=== PATIENT | female | born 1965 | race Caucasian/White ===

== ENCOUNTER 2016-09-09 16:50 | Emergency (ER) | payer OTHER ==
[2016-09-09 17:04] VITALS: BP 153/77
--- NOTE | 2016-09-09 17:56 | UC ---
Eye Complaint HPI - HPI Summary HPI Summary: 50 yo F pain behind left eye, a "film" over her vision, eye jiggling, for a week , with pain worsening the last few days. There is no focal weakness, no visual field deficit, and no Last Known Well time. Pt is a pt of Dr. Osman ( policyholder information clerk), and pt's daughter has pseudotumor cerebri. Pt also has hx pseudoseizures but these symptoms are nothing like her pseudoseizures. - History of Current Complaint Chief Complaint: UCEye Stated Complaint: LEFT EYE ISSUE Time Seen by Provider: 09/09/16 16:54 Hx Obtained From: Patient, Family/Pit Furnace [employer] - fiance Hx Last Menstrual Period: N/A Onset/Duration: Gradual Onset, Lasting Days, Still Present Timing: Constant Severity Initially: Moderate Severity Currently: Moderate Pain Intensity: 3 Pain Scale Used: 0-10 Numeric Location of Injury: Other - no injury Character: Dull Aggravating Factor(s): Other - eye movement Alleviating Factor(s): Nothing Associated Signs And Symptoms: Positive: Vision Impairment Left - 20/100. Negative: Photophobia, Drainage (Clear), Drainage (Purulent), Vision Impairment Bilateral, Vision Impairment Right, Fever, Swelling - Risk Factors Penetrating Injury Risk Factor: Negative Globe Rupture Risk Factors: Negative Acute Glaucoma Risk Factors: Negative Optic Artery Occlusion Risk Factors: Negative - Allergies/Home Medications Allergies/Adverse Reactions: Allergies Allergy/AdvReac Type Severity Reaction Status Date / Time Clindamycin Allergy Severe SEIZURES, Verified 09/09/16 17:04 [From Cleocin HCl] SWEATING, NAUSEA Morphine Allergy Rash And Verified 09/09/16 17:04 Itching Home Medications: Home Medications Clonazepam [Clonazepam Odt] 0.25 mg PO QPM 09/09/16 [History Confirmed 09/09/16] PMH/Surg Hx/FS Hx/Imm Hx Endocrine History Of: Denies: Diabetes, Thyroid Disease Cardiovascular History Of: Denies: Cardiac Disorders, Hypertension Respiratory History Of: Denies: COPD, Asthma GI/ History Of: Denies: Ulcer Neurological History Of: Reports: Seizures - "pseudoseizures" Psychological History Of: Reports: Anxiety Denies: Depression, Schizophrenia - Surgical History Surgical History: Yes Surgery Procedure, Year, and Place: HYSTERECTOMY 2012, CERVICAL SPINE SURGERY 2010, S1 L5 surgeries, 04/2012, 06/2012. Pins and screws present - Family History Known Family History: Positive: Cardiac Disease - Social History Alcohol Use: Rare Substance Use Type: None Smoking Status (MU): Former Smoker When Did the Patient Quit Smoking/Using Tobacco: 2010 Review of Systems Constitutional: Negative Skin: Negative Eyes: Blurred Vision, Other - pain behind left eye ENT: Negative Respiratory: Negative Cardiovascular: Negative Gastrointestinal: Negative Genitourinary: Negative Motor: Negative Neurovascular: Negative Musculoskeletal: Negative Neurological: Negative Psychological: Negative All Other Systems Reviewed And Are Negative: Yes Physical Exam Triage Information Reviewed: Yes Appearance: Well-Nourished, Ill-Appearing, Pain Distress Vital Signs: Initial Vital Signs Temp 98.6 F 09/09/16 16:54 Pulse 63 09/09/16 16:54 Resp 18 09/09/16 16:54 BP 153/77 09/09/16 16:54 elevated BP noted Vital Signs Reviewed: Yes Eyes: Positive: Conjunctiva Clear, Other: - PERRL EOMI but painful with eye movements, no nystagmus; fundi: discs sharp and flat, no hemorrhage, no papilledema ENT: Positive: Normal ENT inspection Neck: Positive: Supple Respiratory: Positive: Lungs clear, Normal breath sounds, No respiratory distress Cardiovascular: Positive: RRR, No Murmur, Pulses Normal, Brisk Capillary Refill Musculoskeletal: Positive: Strength Intact, ROM Intact Neurological: Positive: Alert, Muscle Tone Normal, Other: - Ox3, CNII-XII intact , Motor 5/5, sensation intact, gait normal, no focal deficit. Psychological Exam: Normal Skin Exam: Normal Eye Complaint Course/Dx - Course Course Of Treatment: Pt with painful left eye, and pain with eye movements without focal neuro deficit or visual field deficit. Vision is decreased in that eye, and pt's BP is elevated. Pt does not have a Last Known Well time for possible CVA intervention. Has family hx of pseudotumor cerebri but no evidence of papilledema on exam. No hx glaucoma. Pt has hx pseuodoseizures also , but this is nothing like her pseudoseizures. Discussed with Dr. Ramirez, [facility] , and there is no ophthamology weatherization specialist today, but he can initiate the evaluation that requires a higher level of care than urgent care can provide, and he will determine if pt has an eye emergency that needs transfer. Pt and her fiance are made aware that there is no ophthalmology weatherization specialist at [place], but they prefer to start their care locally and understand that they may need a higher level of care in [place]. Pt signs AMA for ambulance transfer and is ambulatory at discharge. - Differential Dx/Diagnosis Differential Diagnosis/HQI/PQRI: Glaucoma, Orbital Cellulitis, Retinal Artery Occlusion, Uveitis, Other - CVA Provider Diagnoses: left eye pain. elevated BP without diagnosis of HTN. - Physician Notification/Consults Time Discussed With Above Provider: 17:35 - Dr. Ramirez Instructed by Provider To: MD Will See In ED Discharge - Discharge Plan Condition: Stable Disposition: AGAINST MEDICAL ADVICE Referrals: PAKO Griffith,Dash [Primary Care Provider] -
== END 2016-09-09 17:46 | disposition left against medical advice (07) ==
LOC: UCCORT 16:50
DX: H57.12 Ocular pain, left eye (principal); R03.0 Elevated blood-pressure reading, without diagnosis of hypertension
CPT/HCPCS: 99213; G0463

== ENCOUNTER 2017-12-09 13:34 | Emergency (ER) | payer OTHER ==
[2017-12-09 14:13] VITALS: BP 132/71
[2017-12-09] MEDS ORDERED: Tetan/Diph/Pertus SYR(Tdap)* 0.5 ML SYR(BOOSTRIX) use SYR IM ONE (14:38)
--- NOTE | 2017-12-09 14:38 | UC ---
General HPI - HPI Summary HPI Summary: Patient states that she was stacking boards with nails and rhythm when she accidentally scraped the outside of her right leg yesterday. Today, she accidentally stepped on a nail through her boot. She states that the pain was very superficial however it did manage to bleed. She denies foreign body sensation, fever and drainage from either site. She comes in today to update her tetanus which is over 10 years old. - History of Current Complaint Chief Complaint: RAIZAkin Stated Complaint: LEG/FOOT WOUND Time Seen by Provider: 12/09/17 14:31 Hx Obtained From: Patient Hx Last Menstrual Period: N/A Pain Intensity: 5 Aggravating: nothing Alleviating: nothing Associated Signs & Symptoms: Negative: Fever - Allergy/Home Medications Allergies/Adverse Reactions: Allergies Allergy/AdvReac Type Severity Reaction Status Date / Time clindamycin Allergy See Comment Verified 12/09/17 14:06 morphine Allergy Rash And Verified 12/09/17 14:06 Itching Home Medications: Home Medications Ibuprofen TAB* [Advil TAB*] 400 mg PO Q6H PRN 12/09/17 [History Confirmed ] PMH/Surg Hx/FS Hx/Imm Hx - Additional Past Medical History Additional PMH: sleep disturbance Psychological History: Anxiety - Surgical History Surgical History: Yes Surgery Procedure, Year, and Place: HYSTERECTOMY 2012, CERVICAL SPINE SURGERY 2010, S1 L5 surgeries, 04/2012, 06/2012. Pins and screws present - Family History Known Family History: Positive: Cardiac Disease - Social History Lives: With Family - fiance Alcohol Use: Rare Substance Use Type: None Smoking Status (MU): Former Smoker When Did the Patient Quit Smoking/Using Tobacco: 2010 - Immunization History Most Recent Tetanus Shot: due Hx Tetanus, Diphtheria Vaccination: No Vaccination Up to Date: Yes Review of Systems Constitutional: Negative Skin: Other - abrasion RLE, PW L foot Eyes: Negative ENT: Negative Respiratory: Negative Cardiovascular: Negative Gastrointestinal: Negative Genitourinary: Negative Motor: Negative Neurovascular: Negative Musculoskeletal: Negative Neurological: Negative Psychological: Negative Is Patient Immunocompromised?: No All Other Systems Reviewed And Are Negative: Yes Physical Exam Triage Information Reviewed: Yes Appearance: Well-Appearing Vital Signs: Initial Vital Signs Temp 99 F 12/09/17 14:08 Pulse 66 12/09/17 14:08 Resp 14 12/09/17 14:08 BP 132/71 12/09/17 14:08 Pulse Ox 99 12/09/17 14:08 Eyes: Positive: Conjunctiva Clear ENT: Positive: Normal ENT inspection Neck: Positive: Supple, Nontender, No Lymphadenopathy Respiratory: Positive: Lungs clear, Normal breath sounds Cardiovascular: Positive: RRR, No Murmur Abdomen Description: Positive: Nontender, No Organomegaly, Soft Bowel Sounds: Positive: Present Musculoskeletal: Positive: ROM Intact Neurological: Positive: Alert Psychological: Positive: Age Appropriate Behavior Skin Exam: Normal, Other - Superficial abrasion right lower lateral leg plus a second deeper abrasion just inferior to that on the right lower lateral leg. No erythema warmth or streaking or drainage. Inspection a left foot shows a very tiny red spot plantar surface no the ball of the foot. There is no erythema swelling or streaking. The site is nontender nor does it open with traction. Both lower extremities have full sensorivascular motor function. Course/Dx - Course Course Of Treatment: No concern for infection or foreign body. Clean wounds here and at the patient's tetanus. Given the nature of the puncture wound to left foot and a deep abrasion to the right leg, we'll treat with Keflex in an attempt to prevent infection. - Differential Dx - Multi-Symptom Provider Diagnoses: Abrasions RLE. PW L foot Discharge - Sign-Out/Discharge Documenting (check all that apply): Patient Departure All imaging exams completed and their final reports reviewed: No Studies - Discharge Plan Condition: Stable Disposition: HOME Prescriptions: Cephalexin CAP* [Keflex CAP*] 500 mg PO TID 7 Days #21 cap Patient Education Materials: Abrasion (ED), Puncture Wound (ED) Referrals: PAKO Martínez [Primary Care Provider] - 5 Days - Billing Disposition and Condition Condition: STABLE Disposition: Home
== END 2017-12-09 14:59 | disposition home or self-care (01) ==
LOC: UCCORT 13:34
DX: S91.332A Puncture wound without foreign body, left foot, initial encounter (principal); W45.0XXA Nail entering through skin, initial encounter; S89.91XA Unspecified injury of right lower leg, initial encounter; W22.8XXA Striking against or struck by other objects, initial encounter; Y92.9 Unspecified place or not applicable; Z23 Encounter for immunization
CPT/HCPCS: 90471; 90715; 99212; G0463